=== PATIENT | female | born 2000 | race Hispanic/Latino ===

== ENCOUNTER 2022-07-30 03:52 | Inpatient (IN) | payer OTHER ==
[~2022-07-30] VITALS: Ht 152.4 cm; Wt 68.5 kg
[2022-07-30 04:35] LABS: APPEARANCE,URINE CLEAR (CLEAR); BILIRUBIN,URINE NEGATIVE (NEGATIVE); COLOR,URINE COLORLESS (YELLOW); GLUCOSE, URINE (UA) NEGATIVE (NEGATIVE); KETONES,URINE NEGATIVE (NEGATIVE); LEUKOCYTE ESTERASE ,URINE NEGATIVE Leu/uL (NEGATIVE); NITRATE,URINE NEGATIVE (NEGATIVE); OCCULT BLOOD,URINE NEGATIVE (NEGATIVE); PH,URINE 6.5 (5.0-8.0); PROTEIN,URINE NEGATIVE (NEGATIVE); UROBILINOGEN,URINE 0.2 mg/dL (0.2-1.0)
[2022-07-30] MEDS ORDERED: AMPICILLIN 2GM+NS 100ML 100 ML IV SCH (05:00)
[2022-07-30] MEDS ORDERED: LACTATED RINGERS 1000ML 1,000 ML IV PRN (05:00)
[2022-07-30 05:02] LABS: HEMATOCRIT 38.1 % (36-48); MEAN CORPUSCULAR HEMOGLOBIN 28.7 pg (27.0-33.0); MEAN CORPUSCULAR HGB CONC 33.3 g/dL (32.0-36.0); RED BLOOD CELL COUNT(AUTO) 4.43 MIL/uL (4.00-5.50); RED CELL DISTRIBUTION WIDTH 13.2 % (11.0-15.5); WHITE BLOOD COUNT (AUTO) 12.5 K/uL (4.8-10.8)
[2022-07-30 05:08] LABS: AMPHET/METH SCREEN,URINE NEGATIVE (NEGATIVE); BARBITURATE SCREEN, URINE NEGATIVE (NEGATIVE); BENZODIAZEPINES SCREEN,URINE NEGATIVE (NEGATIVE); CANNABINOID SCREEN,URINE NEGATIVE (NEGATIVE); COCAINE SCREEN,URINE NEGATIVE (NEGATIVE); OPIATE SCREEN,URINE NEGATIVE (NEGATIVE); PHENCYCLIDINE SCREEN,URINE NEGATIVE (NEGATIVE)
[2022-07-30] MEDS: LACTATED RINGERS 1000ML 1,000 ML IV SCH ×4 (05:10→20:56)
[2022-07-30] MEDS ORDERED: BUTORPHANOL TARTRATE 2 MG/ML IVP SCH (08:00)
[2022-07-30] MEDS ORDERED: OXYTOCIN-LR 20 UNITS/1000 ML 1,000 ML IV SCH (08:30)
[2022-07-30] MEDS: AMPICILLIN 1GM+NS 50ML 50 ML IV SCH ×3 (10:30→17:00)
[2022-07-30] MEDS ORDERED: CEFAZOLIN SODIUM 1 GM VIAL ONE (12:29)
[2022-07-30] MEDS ORDERED: CEFAZOLIN SODIUM 1 GM VIAL IVP PRN (12:30)
[2022-07-30] MEDS ORDERED: FENTANYL CITRATE PF 50 MCG/1 ML 5ML AMP IV ONE (12:42)
[2022-07-30] MEDS ORDERED: MORPHINE PF 100MG/10ML AMP IV ONE (12:42)
[2022-07-30] MEDS ORDERED: ONDANSETRON 4MG INJ ONE (12:42)
[2022-07-30] MEDS ORDERED: OXYTOCIN 10 USP UNITS/ML ONE (12:46)
[2022-07-30] MEDS ORDERED: CEFAZOLIN SODIUM 2 GM VIAL IVPB ONE (12:56)
[2022-07-30] MEDS ORDERED: DEXAMETHASONE SOD PHOSPHATE 10MG/ML 1ML VIAL ONE (13:39)
[2022-07-30 16:15] VITALS: BP 133/74
[2022-07-30] MEDS ORDERED: MEPERIDINE-PF 75 MG/ML SYG IM PRN (16:30)
[2022-07-30] MEDS ORDERED: 0.9%NACL 10ML VIAL IVP PRN (16:30)
[2022-07-30] MEDS ORDERED: PROMETHAZINE HCL 25 MG/ML 1ML AMPULE IM PRN (16:30)
[2022-07-30] MEDS ORDERED: OXYTOCIN-LR 20 UNITS/1000 ML 1,000 ML IV PRN (16:30)
[2022-07-30] MEDS ORDERED: PNV1TABL57 PO (19:06)
[2022-07-30 19:40] VITALS: BP 125/73
[2022-07-30] MEDS ORDERED: ACETAMINOPHEN WITH CODEINE 1 TAB TAB PO PRN (20:30)
[2022-07-30] MEDS ORDERED: NALOXONE HCL 0.4 MG/1 ML ML IVP PRN ×2 (20:30)
[2022-07-30] MEDS ORDERED: ONDANSETRON 4MG INJ IVP PRN (20:30)
[2022-07-30] MEDS ORDERED: EPHEDRINE SULFATE 50 MG/ML AMPULE IVP PRN (20:30)
[2022-07-30] MEDS ORDERED: DiphenhydrAMINE HCL 50 MG/ML VIAL IVP PRN (20:30)
[2022-07-30] MEDS ORDERED: FLU VACC QS2022-23(6MOS UP)/PF 60 MCG/0.5 ML ML IM ONE (21:00)
[2022-07-30 23:03] VITALS: BP 113/67
[2022-07-30] MEDS: DEXTROSE 5 %-0.45 % NACL 1,000 ML IV PRN (23:49)
[2022-07-31 03:01] VITALS: BP 112/54
[2022-07-31 06:15] LABS: HEMATOCRIT 32.4 % (36-48); MEAN CORPUSCULAR HEMOGLOBIN 28.5 pg (27.0-33.0); MEAN CORPUSCULAR HGB CONC 33.3 g/dL (32.0-36.0); MEAN CORPUSCULAR VOLUME 85.5 fL (79-99); RED BLOOD CELL COUNT(AUTO) 3.79 MIL/uL (4.00-5.50); RED CELL DISTRIBUTION WIDTH 13.2 % (11.0-15.5); WHITE BLOOD COUNT (AUTO) 21.5 K/uL (4.8-10.8)
[2022-07-31] MEDS: DEXTROSE 5 %-0.45 % NACL 1,000 ML IV PRN (06:27)
[2022-07-31 07:30] VITALS: BP 96/60
[2022-07-31] MEDS ORDERED: BISACODYL 10 MG SUPP.RECT RC PRN (08:00)
[2022-07-31] MEDS ORDERED: ACETAMINOPHEN WITH CODEINE 1 TAB TAB PO PRN (08:00)
[2022-07-31] MEDS ORDERED: HYDROCODONE/ACETAMINOPHEN 5/325 MG TAB PO PRN (08:00)
[2022-07-31] MEDS ORDERED: ACETAMINOPHEN 500 MG TABLET PO PRN (08:00)
[2022-07-31] MEDS: DOCUSATE SODIUM 100 MG CAP PO SCH ×2 (08:44→20:26)
[2022-07-31] MEDS: SIMETHICONE 80 MG TAB.CHEW PO PRN ×3 (08:44→20:26)
[2022-07-31 11:28] VITALS: BP 90/56
[2022-07-31] MEDS: LACTATED RINGERS 1000ML 1,000 ML IV SCH ×2 (12:30→20:30)
[2022-07-31 16:00] VITALS: BP 105/63
[2022-07-31 19:22] VITALS: BP 114/74
[2022-07-31 23:07] VITALS: BP 113/75
[2022-08-01 03:30] VITALS: BP 130/76
[2022-08-01 07:35] VITALS: BP 112/70
[2022-08-01] MEDS: DOCUSATE SODIUM 100 MG CAP PO SCH (09:43)
[2022-08-01] MEDS: SIMETHICONE 80 MG TAB.CHEW PO PRN (09:44)
[2022-08-01 11:43] VITALS: BP 105/65
[2022-08-01] MEDS ORDERED: ACET-2079 PO (13:52)
== END 2022-08-01 14:15 | disposition home or self-care (01) | DRG 788 ==
LOC: EDH 03:52 → LDH 03:53 → OBSVTOIN 03:53 → WSH 16:08
PROVIDERS: ADMIT Obstetrics & Gynecology; ATTEND Obstetrics & Gynecology
PROC: 3E0234Z Introduction of Serum, Toxoid and Vaccine into Muscle, Percutaneous Approach (ICD-10-PCS; 2022-07-30)
PROC: 10D00Z1 Extraction of Products of Conception, Low, Open Approach (ICD-10-PCS; principal; 2022-07-30 12:54)
DX: O76 Abnormality in fetal heart rate and rhythm complicating labor and delivery (principal); Z37.0 Single live birth; Z3A.38 38 weeks gestation of pregnancy; Z23 Encounter for immunization
CPT/HCPCS: 36415; 59510; 80305; 81003; 85027; 86592; 86701; 86850; 86900; 86901; 87340; 87390; A4344; G0378; J0290; J0595; J0690; J1100; J2274; J2405; J2590; J3010; J7120; Q2035